=== PATIENT | female | born 1970 | race Caucasian/White ===

== ENCOUNTER → 2016-12-18 | Outpatient (CLI) | payer MEDICARE, MEDICAID ==
[~2016-12-18] MED LIST: LITH450T PO; SERT50TA PO; THYROID MED; [UNRECOGNIZED DRUG - REMARK]; [UNRECOGNIZED DRUG - REMARK] PO
[2016-12-18 17:49] LABS: HEMATOCRIT 41.1 % (34.6-47.8); HEMOGLOBIN 13.8 g/dL (11.7-16.4); WHITE BLOOD COUNT 6.5 x10^3/uL (3.4-10)
[2016-12-18 18:10] LABS: HIV 1&2 ANTIBODY SCREEN Nonreactive (Nonreactive); HIV-1 p24 ANTIGEN Nonreactive (Nonreactive)
[2016-12-18 18:45] LABS: HEP B SURF. AB < 3.1 mIU/mL (0.0-10.0)
== END ==
LOC: LAB 17:19
PROVIDERS: ATTEND Family Medicine
DX: Z11.59 Encounter for screening for other viral diseases (principal); Z11.3 Encounter for screening for infections with a predominantly sexual mode of transmission; Z13.220 Encounter for screening for lipoid disorders; R53.83 Other fatigue; R79.89 Other specified abnormal findings of blood chemistry
CPT/HCPCS: 36415; 80061; 85025; 86592; 86703; 86706; 86803; 87899; G0435

== ENCOUNTER → 2016-12-27 | Outpatient (CLI) | payer MEDICARE, MEDICAID | END | disposition home or self-care (01) | LOC: STAR 12:47 | PROVIDERS: ATTEND Orthopaedic Surgery | DX: Z02.9 Encounter for administrative examinations, unspecified (principal) ==

== ENCOUNTER → 2016-12-31 | Day surgery (SDC) | payer MEDICARE, MEDICAID ==
[~2016-12-31] VITALS: Ht 170.2 cm; Wt 55.2 kg
[~2016-12-31] MED LIST changes: +BUPIVACAINE/PF 0.25% ONE; +CEFAZOLIN 1,000 MG ONE; +DEXAMETHASONE 4 MG/ML, 1ML ONE; +FENTANYL PF 100 MCG/2ML ONE; +GLYCOPYRROLATE 0.2MG/1ML, 5ML ONE; +LACTATED RINGERS 1,000 ML IV SCH; +LIDOCAINE 1%, 2ML SQ PRN; +MIDAZOLAM 1 MG/ML, 2ML ONE; +NEOSTIGMINE 1 MG/ML, 10ML ONE; +ONDANSETRON 2MG/ML, 2ML ONE; +PROPOFOL 10 MG/ML, 20ML ONE; +ROCURONIUM 10 MG/ML ONE; +SUCCINYLCHOLINE 20 MG/ML, 10ML ONE
[2016-12-31 13:17] VITALS: BP 149/78
== END ==
LOC: OUT 12:47
PROVIDERS: ATTEND Orthopaedic Surgery
DX: Z02.9 Encounter for administrative examinations, unspecified (principal)
CPT/HCPCS: J0690; J1100; J2250; J2405; J2704; J2710; J3010; J3490; J0330

== ENCOUNTER 2017-05-13 14:51 | Emergency (ER) | payer MEDICARE, MEDICAID ==
[~2017-05-13] VITALS: Ht 170.2 cm; Wt 57.5 kg
[~2017-05-13 14:51] MED LIST changes: -BUPIVACAINE/PF 0.25% ONE; -CEFAZOLIN 1,000 MG ONE; -DEXAMETHASONE 4 MG/ML, 1ML ONE; -FENTANYL PF 100 MCG/2ML ONE; -GLYCOPYRROLATE 0.2MG/1ML, 5ML ONE; -LACTATED RINGERS 1,000 ML IV SCH; -LIDOCAINE 1%, 2ML SQ PRN; -MIDAZOLAM 1 MG/ML, 2ML ONE; -NEOSTIGMINE 1 MG/ML, 10ML ONE; -ONDANSETRON 2MG/ML, 2ML ONE; -PROPOFOL 10 MG/ML, 20ML ONE; -ROCURONIUM 10 MG/ML ONE; -SUCCINYLCHOLINE 20 MG/ML, 10ML ONE
[2017-05-13 14:53] VITALS: BP 107/61
[2017-05-13] MEDS ORDERED: LIDOCAINE 1%, 20ML INFIL ONE (15:30)
[2017-05-13 16:50] LABS: CLUE CELLS NONE SEEN (NONE SEEN)
[2017-05-13 16:51] LABS: WET PREP WBCS MANY (FEW)
[2017-05-13] MEDS ORDERED: CEFTRIAXONE 250 MG IM ONE (17:00)
[2017-05-13] MEDS ORDERED: AZITHROMYCIN 500 MG TABLET PO ONE (17:00)
== END 2017-05-13 17:59 | disposition home or self-care (01) ==
LOC: ED 16:00
DX: N76.4 Abscess of vulva (principal); N89.8 Other specified noninflammatory disorders of vagina; A59.01 Trichomonal vulvovaginitis; E78.5 Hyperlipidemia, unspecified
CPT/HCPCS: 87210; 87491; 87591; 87808; 99284

== ENCOUNTER 2017-06-07 20:03 | Emergency (ER) | payer MEDICARE, MEDICAID ==
[~2017-06-07] VITALS: Ht 170.2 cm; Wt 55.8 kg
[2017-06-07 20:52] LABS: BASOPHILS # (AUTO) 0.05 x10^3/uL (0-0.1); BASOPHILS % (AUTO) 1 % (0-1); EOSINOPHILS # (AUTO) 0.11 x10^3/uL (0-0.4); EOSINOPHILS % (AUTO) 1 % (1-7); LYMPHOCYTES % (AUTO) 33 % (22-44); MD NO; MEAN CORPUSCULAR HEMOGLOBIN 29.8 pg (27.0-34.8); MEAN CORPUSCULAR HGB CONC 33.5 g/dL (32.4-35.8); MEAN CORPUSCULAR VOLUME 88.9 fL (80-100); MEAN PLATELET VOLUME 7.4 fL (7.4-10.4); MONOCYTES % (AUTO) 7 % (2-9); NEUTROPHILS # (AUTO) 4.74 x10^3/uL (1.8-6.8); NEUTROPHILS % (AUTO) 58 % (42-75); PLATELET COUNT 264 x10^3/uL (130-400); RED BLOOD COUNT 4.51 x10^6/uL (3.82-5.3); RED CELL DISTRIBUTION WIDTH 14.4 % (9.6-15.2)
[2017-06-07] MEDS ORDERED: SODIUM CHLORIDE FLUSH 10ML SYR IVF ONE (21:00)
[2017-06-07] MEDS ORDERED: ASPIRIN 81 MG TABLET CHEW PO ONE (21:00)
[2017-06-07] MEDS ORDERED: FAMOTIDINE 20 MG TABLET PO ONE (21:00)
[2017-06-07] MEDS ORDERED: MAALOX/HYOSCYAMINE/LIDOCAINE 45 ML BTL PO ONE (21:00)
[2017-06-07 21:03] LABS: ALANINE AMINOTRANSFERASE 17 U/L (12-78); ALBUMIN 3.9 g/dL (3.4-5.0); ANION GAP 7 mmol/L (5-15); CALCIUM 9.2 mg/dL (8.5-10.1); CHLORIDE 106 mmol/L (98-107); CREATININE 0.65 mg/dL (0.55-1.02)
[2017-06-07 21:07] LABS: ALKALINE PHOSPHATASE 118 U/L (45-117); BILIRUBIN,TOTAL 0.3 mg/dL (0.2-1.0); TOTAL PROTEIN 7.4 g/dL (6.4-8.2); TROPONIN I < 0.015 ng/mL (0.000-0.045)
[2017-06-07] MEDS ORDERED: ASPIRIN 81 MG TABLET CHEW ONE (21:12)
[2017-06-07] MEDS ORDERED: MAALOX/HYOSCYAMINE/LIDOCAINE 45 ML BTL ONE (21:12)
[2017-06-07] MEDS ORDERED: FAMOTIDINE 20 MG TABLET ONE (21:12)
[2017-06-07 21:59] VITALS: BP 122/86
== END 2017-06-07 21:52 | disposition home or self-care (01) ==
LOC: ED 21:46
DX: K21.9 Gastro-esophageal reflux disease without esophagitis (principal); R07.89 Other chest pain; E78.5 Hyperlipidemia, unspecified; E07.9 Disorder of thyroid, unspecified
CPT/HCPCS: 36415; 71045; 80053; 83880; 84443; 84484; 85025; 93005; 99285

== ENCOUNTER 2017-07-08 13:55 | Day surgery (SDC) | payer MEDICARE, MEDICAID ==
[~2017-07-08] VITALS: Ht 170.2 cm; Wt 57.4 kg
[~2017-07-08 13:55] MED LIST changes: +CEFAZOLIN 1,000 MG ONE; +DEXAMETHASONE 4 MG/ML, 1ML ONE; +FENTANYL PF 250 MCG/5ML ONE; +MIDAZOLAM 1 MG/ML, 2ML ONE; +ONDANSETRON 2MG/ML, 2ML ONE; +PROPOFOL 10 MG/ML, 20ML ONE; +WATER-INJECTION,STERILE 10 ML IV ONE
[2017-07-08 14:15] VITALS: BP 109/72
[2017-07-08] MEDS ORDERED: LACTATED RINGERS 1,000 ML IV SCH (14:19)
[2017-07-08] MEDS ORDERED: LIDOCAINE-MPF 1%, 2ML ONE (14:24)
[2017-07-08] MEDS ORDERED: LIDOCAINE-MPF 1%, 2ML INFIL ONE (14:30)
[2017-07-08 14:53] LABS: HCG UR SG 1.019 (1.003-1.030)
[2017-07-08 15:10] LABS: AMPHETAMINE SCREEN, URINE Positive (Negative); BARBITURATE SCREEN, URINE Negative (Negative); BENZODIAZEPINE SCREEN, URINE Negative (Negative); CANNABINOID SCREEN, URINE Negative (Negative); COCAINE SCREEN, URINE Negative (Negative); METHADONE SCREEN, URINE Negative (Negative); OPIATE SCREEN, URINE Negative (Negative)
[2017-07-08] MEDS ORDERED: MIDAZOLAM 1 MG/ML, 2ML ONE (15:15)
[2017-07-08] MEDS ORDERED: BUPIVACAINE/PF 0.5% ONE (15:16)
[2017-07-08] MEDS ORDERED: EPINEPHRINE 1 MG/ML, 1ML ONE (15:16)
[2017-07-08] MEDS ORDERED: LIDOCAINE 1%, 50ML ONE (15:16)
[2017-07-08] MEDS ORDERED: FENTANYL PF 100 MCG/2ML ONE (15:35)
[2017-07-08] MEDS ORDERED: BUPIVACAINE/PF-EPI 0.5% 1:200K IM ONE (16:05)
[2017-07-08] MEDS ORDERED: KETOROLAC 30 MG/1 ML ONE (16:08)
[2017-07-08] MEDS ORDERED: DEXAMETHASONE 4 MG/ML, 1ML ONE (16:12)
[2017-07-08] MEDS ORDERED: CEFAZOLIN 1,000 MG ONE (16:12)
[2017-07-08] MEDS ORDERED: PROPOFOL 10 MG/ML, 20ML ONE (16:12)
[2017-07-08] MEDS ORDERED: ONDANSETRON 2MG/ML, 2ML ONE (16:12)
[2017-07-08] MEDS ORDERED: DIAZEPAM 5 MG/ML, 2ML IVPush PRN (16:30)
[2017-07-08] MEDS ORDERED: LORazepam 2 MG/ML, 1ML IVPush PRN (16:30)
[2017-07-08] MEDS ORDERED: PROMETHAZINE 25 MG/ML, 1ML IV PRN (16:30)
[2017-07-08] MEDS ORDERED: LABETALOL 5MG/ML, 20ML IV PRN (16:30)
[2017-07-08] MEDS ORDERED: OXYcodone 5 MG/5 ML ORAL.SOL UDC PO PRN (16:30)
[2017-07-08] MEDS ORDERED: MORPHINE SULFATE 4 MG/ML, 1ML IV PRN (16:30)
[2017-07-08] MEDS ORDERED: MEPERIDINE/PF 25MG/0.5ML IVPush PRN (16:30)
[2017-07-08] MEDS ORDERED: ONDANSETRON 2MG/ML, 2ML IVPush PRN (16:30)
[2017-07-08] MEDS ORDERED: hydrALAzine 20 MG/ML, 1ML IV PRN (16:30)
[2017-07-08] MEDS ORDERED: MIDAZOLAM 1 MG/ML, 2ML IV PRN (16:30)
[2017-07-08] MEDS ORDERED: ALBUTEROL/IPRATROPIUM 2.5MG/0.5MG, 3 ML NPPB PRN (16:30)
[2017-07-08] MEDS ORDERED: METOCLOPRAMIDE 5 MG/ML, 2ML IV PRN (16:30)
[2017-07-08] MEDS ORDERED: ALBUTEROL SULFATE 2.5 MG/3 ML NPPB PRN (16:30)
[2017-07-08] MEDS ORDERED: ACETAMINOPHEN 325 MG TABLET PO PRN (16:30)
[2017-07-08] MEDS ORDERED: PROMETHAZINE 12.5 MG SUPP PR PRN (16:30)
[2017-07-08] MEDS ORDERED: FENTANYL PF 100 MCG/2ML IV PRN (16:30)
== END 2017-07-08 18:11 ==
LOC: OR 13:55
PROVIDERS: ATTEND Orthopaedic Surgery
DX: T84.84XA Pain due to internal orthopedic prosthetic devices, implants and grafts, initial encounter (principal); Y83.8 Other surgical procedures as the cause of abnormal reaction of the patient, or of later complication, without mention of misadventure at the time of the procedure; Y92.89 Other specified places as the place of occurrence of the external cause
CPT/HCPCS: 20680; 80307; 81025; J0690; J1100; J1885; J2250; J2405; J2704; J3010; J3490; J7120; J0171

== ENCOUNTER 2019-06-04 19:26 | Emergency (ER) | payer MEDICAID, MEDICARE ==
[~2019-06-04] VITALS: Ht 170.2 cm; Wt 59.5 kg
[~2019-06-04 19:26] MED LIST changes: -CEFAZOLIN 1,000 MG ONE; -DEXAMETHASONE 4 MG/ML, 1ML ONE; -FENTANYL PF 250 MCG/5ML ONE; -MIDAZOLAM 1 MG/ML, 2ML ONE; -ONDANSETRON 2MG/ML, 2ML ONE; -PROPOFOL 10 MG/ML, 20ML ONE; -WATER-INJECTION,STERILE 10 ML IV ONE
[2019-06-04 19:31] VITALS: BP 137/71
[2019-06-04] MEDS ORDERED: KETOROLAC 30 MG/1 ML IM ONE (20:00)
[2019-06-04] MEDS ORDERED: KETOROLAC 30 MG/1 ML ONE (20:15)
--- NOTE | 2019-06-04 20:24 | NUR ---
CT HEAD/NECK CANCELED D/T CHANGE IN COMPLAINT. C/O MID BACK PAIN. UA SENT.
[2019-06-04 20:39] LABS: CULTURE INDICATED? YES; MICROSCOPIC INDICATED
--- NOTE | 2019-06-04 20:59 | NUR ---
ct pending negative beta.
[2019-06-04 21:19] LABS: BASOPHILS # (AUTO) 0.05 x10^3/uL (0-0.1); BASOPHILS % (AUTO) 1 % (0-1); EOSINOPHILS # (AUTO) 0.13 x10^3/uL (0-0.4); EOSINOPHILS % (AUTO) 2 % (1-7); LYMPHOCYTES # (AUTO) 1.66 x10^3/uL (1-3.4); LYMPHOCYTES % (AUTO) 21 % (22-44); MD NO; MEAN CORPUSCULAR HEMOGLOBIN 29.8 pg (27.0-34.8); MEAN CORPUSCULAR HGB CONC 33.3 g/dL (32.4-35.8); MEAN CORPUSCULAR VOLUME 89.6 fL (80-100); MEAN PLATELET VOLUME 6.8 fL (7.4-10.4); MONOCYTES # (AUTO) 0.41 x10^3/uL (0.2-0.8); MONOCYTES % (AUTO) 5 % (2-9); NEUTROPHILS # (AUTO) 5.56 x10^3/uL (1.8-6.8); NEUTROPHILS % (AUTO) 71 % (42-75); PLATELET COUNT 269 x10^3/uL (130-400); RED CELL DISTRIBUTION WIDTH 13.5 % (9.6-15.2)
[2019-06-04 21:32] LABS: ALANINE AMINOTRANSFERASE 18 U/L (12-78); ALBUMIN 3.8 g/dL (3.4-5.0); ANION GAP 7 mmol/L (5-15); CALCIUM 8.2 mg/dL (8.5-10.1); CHLORIDE 107 mmol/L (98-107); CREATININE 0.56 mg/dL (0.55-1.02)
[2019-06-04 21:36] LABS: ALKALINE PHOSPHATASE 128 U/L (45-117); BILIRUBIN,TOTAL 0.2 mg/dL (0.2-1.0)
--- NOTE | 2019-06-04 21:46 | NUR ---
CALLED CT, PT NEXT. PT GIVEN BLANKET. NAD.
--- NOTE | 2019-06-04 21:49 | NUR ---
REPORT TO ALBA PATINO.
[2019-06-04] MEDS ORDERED: METHOCARBAMOL 750 MG TABLET PO ONE (23:00)
[2019-06-04] MEDS ORDERED: METHOCARBAMOL 750 MG TABLET ONE (23:02)
== END 2019-06-04 23:20 | disposition home or self-care (01) ==
LOC: ED 20:26
DX: K80.20 Calculus of gallbladder without cholecystitis without obstruction (principal); K59.00 Constipation, unspecified; F17.210 Nicotine dependence, cigarettes, uncomplicated; R10.9 Unspecified abdominal pain; M54.9 Dorsalgia, unspecified; K21.9 Gastro-esophageal reflux disease without esophagitis; E78.5 Hyperlipidemia, unspecified; Z86.39 Personal history of other endocrine, nutritional and metabolic disease
CPT/HCPCS: 36415; 71046; 74176; 80053; 81001; 84703; 85025; 87086; 96372; 99285; J1885

== ENCOUNTER 2019-06-07 13:13 | Emergency (ER) | payer MEDICARE, MEDICAID ==
[~2019-06-07] VITALS: Ht 170.2 cm; Wt 60.0 kg
[2019-06-07 13:23] VITALS: BP 122/70
[2019-06-07] MEDS ORDERED: HYDROcodone/APAP 5/325 TABLET ONE (13:53)
[2019-06-07] MEDS ORDERED: HYDROcodone/APAP 5/325 TABLET PO ONE (14:00)
--- NOTE | 2019-06-07 14:29 | NUR ---
Patient/Caregiver given discharge instructions and they have confirmed that they understand the instructions. Patient ambulatory with steady gait. PT LEFT WITH ALL PERSONAL BELONGINGS.
== END 2019-06-07 14:31 | disposition home or self-care (01) ==
LOC: ED 14:25
DX: B02.33 Zoster keratitis (principal); E78.5 Hyperlipidemia, unspecified; K21.9 Gastro-esophageal reflux disease without esophagitis; Z87.891 Personal history of nicotine dependence; Z86.39 Personal history of other endocrine, nutritional and metabolic disease
CPT/HCPCS: 99283

== ENCOUNTER 2019-06-18 14:56 | Emergency (ER) | payer MEDICARE, MEDICAID ==
[~2019-06-18] VITALS: Ht 170.2 cm; Wt 59.0 kg
[2019-06-18 15:05] VITALS: BP 95/69
--- NOTE | 2019-06-18 16:28 | NUR ---
Patient/Caregiver given discharge instructions and they have confirmed that they understand the instructions. Patient ambulatory with steady gait. PT LEFT WITH ALL PERSONAL BELONGINGS.
== END 2019-06-18 16:38 | disposition home or self-care (01) ==
LOC: ED 16:31
DX: B02.9 Zoster without complications (principal); E78.5 Hyperlipidemia, unspecified; K21.9 Gastro-esophageal reflux disease without esophagitis; Z86.39 Personal history of other endocrine, nutritional and metabolic disease; F17.210 Nicotine dependence, cigarettes, uncomplicated
CPT/HCPCS: 99283

== ENCOUNTER 2020-11-09 16:27 | Emergency (ER) | payer MEDICARE, MEDICAID ==
[~2020-11-09] VITALS: Ht 170.2 cm; Wt 58.0 kg
[2020-11-09 17:05] VITALS: BP 97/64
[2020-11-09] MEDS ORDERED: IBUPROFEN 200 MG TABLET PO ONE (20:00)
--- NOTE | 2020-11-09 20:05 | NUR ---
pt refused motrin. "I have that at home. I want some real pain meds like a norco"
== END 2020-11-09 20:36 | disposition home or self-care (01) ==
LOC: ED 19:59
DX: M25.561 Pain in right knee (principal); M25.461 Effusion, right knee; F17.210 Nicotine dependence, cigarettes, uncomplicated; E78.5 Hyperlipidemia, unspecified; K21.9 Gastro-esophageal reflux disease without esophagitis
CPT/HCPCS: 99283